=== PATIENT | female | born 1965 | race Caucasian/White ===

== ENCOUNTER 2023-08-22 12:15 | Emergency (ER) | payer OTHER ==
[~2023-08-22] VITALS: Ht 170.2 cm; Wt 95.4 kg
[2023-08-22] MEDS: TETRACAINE HCL 0.5% OPTH(EYE) SOLN 4ML LEFTEYE ONE (13:09)
[2023-08-22] MEDS: FLUORESCEIN SOD OPTH TEST STRIP OP ONE (13:10)
[2023-08-22] MEDS ORDERED: CIPR0.3S67 OP (13:32)
[2023-08-22 13:43] VITALS: BP 119/77; PULSE 93; RESP 18; TEMP 98.5; O2SAT 98
== END 2023-08-22 13:45 | disposition home or self-care (01) ==
LOC: ER 12:15
DX: S05.02XA Injury of conjunctiva and corneal abrasion without foreign body, left eye, initial encounter (principal); H10.32 Unspecified acute conjunctivitis, left eye; Z90.49 Acquired absence of other specified parts of digestive tract; Z90.89 Acquired absence of other organs; Z79.2 Long term (current) use of antibiotics; Z88.2 Allergy status to sulfonamides; X58.XXXA Exposure to other specified factors, initial encounter; Y93.89 Activity, other specified; Y92.89 Other specified places as the place of occurrence of the external cause; Y99.8 Other external cause status